=== PATIENT | male | born 1940 | race Caucasian/White ===

== ENCOUNTER → 2024-03-12 | Outpatient (CLI) | payer MEDICARE, SELFPAY ==
--- NOTE | 2024-03-12 14:31 | XR_ITS ---
Examination: Ribs, right, 5 views Technique: Right RIBS AP, RPO, LPO, AP coned lower ribs 5 views Exam date and time: March 12, 2024 1447 hours INDICATIONS: Patient fell 5 days ago with injury to the right chest, right rib pain Findings: No pneumothorax Severe osteopenia All the images are degraded by patient motion No acute fractures depicted IMPRESSION: No pneumothorax pulmonary contusion or hemothorax No acute right rib fractures depicted, study is limited as the patient moved continuously during this study, repeat this study as clinically warranted
--- NOTE | 2024-03-12 14:31 | XR_ITS ---
Examination: PA lateral chest 2 views TECHNIQUE: Upright PA lateral chest 2 views Exam date and time: March 12, 2024 1451 hours INDICATIONS: Patient fell 5 days ago with injury to the right chest, right rib pain FINDINGS: Mild prominence of ventricle Scarring versus subsegmental atelectasis left lower lung zone No pneumothorax Prominent osteopenia Clavicles ribs thoracic vertebral bodies appear intact IMPRESSION: No pneumothorax pulmonary contusion or hemothorax
[2024-03-12 15:04] LABS: Collection Type, Urine Clean Catch
[2024-03-12 15:33] LABS: Bilirubin,Urine Negative (Negative); Blood,Urine Negative (Negative); Clarity,Urine Clear (Clear/Hazy); Color,Urine Yellow (Lt Yel-Yel); Glucose, Urine Negative (Negative); Ketones,Urine Negative (Negative); Leukocyte Esterase,Urine Negative (Negative); Nitrite,Urine Negative (Negative); PH,Urine 6.5 (5.0-7.0); Protein,Urine Trace (Neg - Trace); RBC,Urine 5 /hpf (0-3); Specific Gravity,Urine 1.025 (1.001-1.035); Squamous Epithelial Cell,Urine < 1 /hpf (0-5); Urobilinogen,Urine Negative mg/dL (0.0-1.0); WBC,Urine 1 /hpf (0-5)
== END | disposition home or self-care (01) ==
LOC: CDIM 14:24 → COPL 14:25
PROVIDERS: PCP Nurse Practitioner Family; Referring Provider Nurse Practitioner Family; Visit Provider Radiology Diagnostic Radiology
DX: R07.81 Pleurodynia (principal); N39.0 Urinary tract infection, site not specified
CPT/HCPCS: 71046; 71101; 81001; 87086

== ENCOUNTER → 2024-04-06 | Outpatient (CLI) | payer MEDICARE, SELFPAY ==
--- NOTE | 2024-04-06 | XR_ITS ---
Examination:Right hip AP, lateral, AP pelvis 3 views Technique: Hip AP lateral, AP pelvis, 3 views Exam date and time:April 06, 2024, 1312 hours INDICATIONS: Patient fell today with injury to the right hip, right hip pain. FINDINGS: Right hip bipolar hemiarthroplasty. No fracture No prosthetic hip dislocation IMPRESSION: No hip or pelvic fracture.
--- NOTE | 2024-04-06 | XR_ITS ---
Exam date examination: Lumbar spine 3 views Technique one AP lateral coned lateral lower lumbar spine 3 views Exam date and time: Every 2024 1323 hours INDICATIONS: Patient fell last month with injury to lower back, lower back pain. FINDINGS: Adequate alignment lumbar vertebral bodies. No lumbar fracture. Diffuse moderate to advanced lumbar degenerative disc disease IMPRESSION: No lumbar fracture
== END | disposition home or self-care (01) ==
LOC: CDIM 11:40
PROVIDERS: PCP Nurse Practitioner Family; Referring Provider Nurse Practitioner Family; Visit Provider Nurse Practitioner Family
DX: S79.911A Unspecified injury of right hip, initial encounter (principal); S39.92XA Unspecified injury of lower back, initial encounter; W19.XXXA Unspecified fall, initial encounter
CPT/HCPCS: 72100; 73502

== ENCOUNTER → 2024-09-07 | Outpatient (CLI) | payer MEDICARE, SELFPAY ==
--- NOTE | 2024-09-07 10:38 | XR_ITS ---
Examination:Right hip AP, lateral, AP pelvis 3 views Technique: Hip AP lateral, AP pelvis, 3 views Exam date and time:September 07, 2024 1051 hours INDICATIONS: Hip replacement January 2021 patient fell April 2024 with injury to the right hip, persistent pain. FINDINGS: Right hip hemiarthroplasty. Satisfactory alignment. No loosening of the prosthetic components no hip dislocation Left hip bones of the pelvis intact Moderate narrowing left hip joint IMPRESSION: Right hip hemiarthroplasty with satisfactory alignment.
== END | disposition home or self-care (01) ==
LOC: CDIM 10:28
PROVIDERS: PCP Nurse Practitioner Family; Referring Provider Nurse Practitioner Family; Visit Provider Nurse Practitioner Family
DX: M25.551 Pain in right hip (principal); Z96.641 Presence of right artificial hip joint; S79.911S Unspecified injury of right hip, sequela; W19.XXXS Unspecified fall, sequela
CPT/HCPCS: 73502

== ENCOUNTER → 2024-09-15 | Outpatient (CLI) | payer MEDICARE, SELFPAY ==
--- NOTE | 2024-09-15 | XR_ITS ---
Examination: Lumbar spine 3 views Technique one AP lateral coned lateral lower lumbar spine 3 views Date and time: September 15, 2024 1119 hours INDICATIONS: Low back pain radiating down the leg 3 years FINDINGS: Severe osteopenia. Grade 1 retrolisthesis L4 on L5 No acute lumbar fracture. Prominent lumbar spondylosis. Advanced degenerative disc disease lower 4 lumbar levels IMPRESSION: Advanced degenerative disc disease lower 4 lumbar levels with spinal stenosis
== END | disposition home or self-care (01) ==
LOC: CDIM 10:54
PROVIDERS: PCP Nurse Practitioner Family; Referring Provider Nurse Practitioner Family; Visit Provider Nurse Practitioner Family
DX: M51.369 Other intervertebral disc degeneration, lumbar region without mention of lumbar back pain or lower extremity pain (principal); M48.061 Spinal stenosis, lumbar region without neurogenic claudication
CPT/HCPCS: 72100